=== PATIENT | female | born 1980 | race Two or more races ===

== ENCOUNTER → 2024-08-04 | Emergency (ER) | payer OTHER ==
[~2024-08-04] VITALS: Ht 165.1 cm; Wt 86.2 kg
[~2024-08-04] MED LIST: METFORMIN HCL500 M3 PO; SYNTHROID50 MCG PO; ZESTRIL5 MG PO; ZOCOR20 MG PO
== END | disposition left against medical advice (07) ==
LOC: ER 00:12
DX: Z53.21 Procedure and treatment not carried out due to patient leaving prior to being seen by health care provider (principal)